=== PATIENT | male | born 1945 | race Caucasian/White ===

== ENCOUNTER 2020-07-24 19:35 | Emergency (ER) | payer MEDICARE ==
[2020-07-24] MEDS ORDERED: Amoxicillin/Potassium Clav 875 MG TAB ONE (20:07)
[2020-07-24] MEDS ORDERED: Sulfameth/Trimethoprim DS 800-160mg TAB ONE (20:07)
== END 2020-07-24 20:12 | disposition home or self-care (01) ==
LOC: MADERS 19:35
DX: L03.113 Cellulitis of right upper limb (principal); I48.91 Unspecified atrial fibrillation; K21.9 Gastro-esophageal reflux disease without esophagitis; E03.9 Hypothyroidism, unspecified; E78.00 Pure hypercholesterolemia, unspecified
CPT/HCPCS: 99283

== ENCOUNTER 2022-02-19 09:56 | Emergency (ER) | payer MEDICARE ==
[2022-02-19] MEDS ORDERED: Sodium Chloride 0.9% 100 ML ONE (10:29)
[2022-02-19] MEDS ORDERED: cefTRIAXone\\ROCEPHIN 2 GM VIAL ONE (10:30)
[2022-02-19] MEDS ORDERED: metroNIDAZOLE 500 MG/100 ML BAG ONE (10:30)
[2022-02-19 10:50] LABS: Bilirubin, Total 0.8 mg/dL (0.2-1.2); Calcium 8.2 mg/dL (7.8-10.44); Chloride 106 mmol/L (98-107); Potassium 4.3 mmol/L (3.5-5.1); Sodium 141 mmol/L (136-145)
[2022-02-19 10:58] LABS: Albumin 3.1 g/dL (3.4-4.8); Globulin 2.5 g/dL (2.4-3.5); Protein, Total 5.6 g/dL (5.8-8.1)
[2022-02-19 10:59] LABS: Glucose 98 mg/dL (83-110)
[2022-02-19 11:02] LABS: BUN (Urea Nitrogen) 19 mg/dL (8.4-25.7); Estimated GFR 92
[2022-02-19 11:03] LABS: Anion Gap 12 mmol/L (10-20); Carbon Dioxide 26 mmol/L (23-31)
[2022-02-19 11:04] LABS: ALT (SGPT) 8 U/L (8-55); AST (SGOT) 13 U/L (5-34); Alkaline Phosphatase 43 U/L (40-110)
[2022-02-19 11:29] LABS: Mean Corpuscular HGB CONC 31.1 g/dL (32.0-36.0); Mean Corpuscular Hemoglobin 29.6 pg (27.0-31.0); Mean Corpuscular Volume 95.3 fL (78.0-98.0); Platelet Count 117 thou/uL (130-400); RBC Distribution Width 14.1 % (11.5-14.5); White Blood Cell (WBC) Count 7.4 thou/uL (4.8-10.8)
[2022-02-19 11:30] LABS: Manual Diff?? YES; Mean Platelet Volume 9.1 fL (7.4-10.4)
[2022-02-19 11:38] LABS: Lymphocytes 2 % (21-51); MDiff Complete? YES; Neutrophil 89 % (42-75)
[2022-02-19 11:39] LABS: Monocytes 2 % (0-10); Platelet Morphology Comment Appears Decreased; Reactive Lymphocytes 7 % (0-10)
[2022-02-19] MEDS ORDERED: Doxycycline 100 MG CAP ONE ×2 (12:21→12:22)
[2022-02-19] MEDS ORDERED: Clindamycin/D5W 600 mg/50 ml Premix Bag ONE (12:21)
== END 2022-02-19 13:22 | disposition home or self-care (01) ==
LOC: MADERS 09:56
DX: L03.114 Cellulitis of left upper limb (principal); I48.91 Unspecified atrial fibrillation; E03.9 Hypothyroidism, unspecified; E78.00 Pure hypercholesterolemia, unspecified
CPT/HCPCS: 80053; 83605; 85025; 96365; 96367; J0696; J3490

== ENCOUNTER 2024-06-01 06:36 | Emergency (ER) | payer MEDICARE | END 2024-06-01 08:10 | disposition home or self-care (01) | LOC: MADERS 06:36 | DX: S80.02XA Contusion of left knee, initial encounter (principal); S40.212A Abrasion of left shoulder, initial encounter; I48.91 Unspecified atrial fibrillation; E78.00 Pure hypercholesterolemia, unspecified; E03.9 Hypothyroidism, unspecified; K21.9 Gastro-esophageal reflux disease without esophagitis; Z79.01 Long term (current) use of anticoagulants; W01.10XA Fall on same level from slipping, tripping and stumbling with subsequent striking against unspecified object, initial encounter | CPT/HCPCS: 99283 ==